=== PATIENT | male | born 1980 | race Caucasian/White ===

== ENCOUNTER 2018-02-05 18:52 | Emergency (ER) | END 2018-02-05 21:17 | disposition home or self-care (01) ==

== ENCOUNTER 2019-01-12 09:11 | Emergency (ER) | payer MEDICAID ==
[~2019-01-12] VITALS: Ht 175.3 cm; Wt 78.0 kg
[~2019-01-12 09:11] MED LIST: OMEP20CA16 PO; SUCR1TAB56 PO
[2019-01-12 09:19] VITALS: Ht 175.3 cm; Wt 78.0 kg
[2019-01-12] MEDS ORDERED: FAMOTIDINE 20 MG TAB PO STA (09:51)
[2019-01-12] MEDS ORDERED: LIDOCAINE/MYLANTA 40 ML BTL PO STA (09:51)
[2019-01-12 11:32] VITALS: BP 117/60; PULSE 63; RESP 15
== END 2019-01-12 11:32 | disposition home or self-care (01) ==
LOC: E/R 09:11
DX: R10.13 Epigastric pain (principal)
CPT/HCPCS: 93005; Z7502; Z7610